=== PATIENT | female | born 1980 | race Caucasian/White ===

== ENCOUNTER 2016-07-08 10:03 | Inpatient (IN) | payer BC, OTHER ==
--- NOTE | ~2016-07-08 | HP ---
History And Physical [address] [address] [place]. [address] NAME: JOSE DOOLEY : 76 STATUS : ADM [place] PAT#: [id number] AGE: 35 ADM/REG DATE : 07/08/16 MR#: [id number] REPORT SERV DATE: 07/08/16 DICTATED BY: TOÑA BARRIOS DATE: 07/08/16 REPORT STATUS : Draft TRANSCRIBED BY: MODBhumika DATE: 07/08/16 DATE OF ADMISSION: 07/08/2016 CHIEF COMPLAINT: Shortness of breath and chest pain for two weeks. HISTORY OF PRESENT ILLNESS: This is a pleasant 35-year-old morbidly obese white female with no known history of CAD, but treated for palpitations with Toprol-XL. The patient reports dyspnea on exertion and exertional chest pain over the last several weeks that has worsened over the past two weeks and seems to come on with less exertion such as housework or walking on a flat surface. She describes it as substernal chest pain that radiates underneath her left breast. She reports associated shortness of breath, nausea, and dizziness. Denies any diaphoresis or belching. At its most intense, she rates the chest pain a 10/10. At the time of interview in the [facility], she is pain-free. The episodes resolved with rest. The patient denies any personal history of myocardial infarction, stroke, DVT, or pulmonary embolus. The patient denies any recent fever or chills. Describes rare palpitations. Consumes rare diet Coke. No syncopal episodes. Denies PND or orthopnea. PAST MEDICAL HISTORY: 1. Palpitations treated with long-acting beta-frederic. 2. BMI greater than 40. 3. Goiter, followed by Dr. Gutierrez. 4. Former tobacco abuse. SURGICAL HISTORY: A thyroid biopsy, benign; cervical biopsy, benign, and . SOCIAL HISTORY: She is with two children. She is employed in childcare. Does not have an exercise routine. Quit smoking in 2013. Prior to that, was a half pack to one pack per day for 7+ years. Denies alcohol or illicits. FAMILY HISTORY: No embolic events reported in first-degree relatives. Maternal grandfather with a heart attack in his 50s, remains alive at 86. Paternal grandfather with a stroke in his 80s and a heart attack at 92, remains living. Paternal grandmother with valve replacement and heart attack in her 80s, remains alive at 84. REVIEW OF SYSTEMS: A fourteen-point review of systems performed, significant for HPI. No other contributory diagnoses identified. ALLERGIES: PENICILLIN, VOMITING. HOME MEDICINES: Tylenol p.r.n., metoprolol succinate 25 mg daily. PHYSICAL EXAMINATION: VITAL SIGNS: Bilateral blood pressures on arrival, right 127/74, left 129/71, pulse 87, History And Physical [address] [address] NAME: JOSE DOOLEY : 76 STATUS : ADM [place] PAT#: [id number] AGE: 35 ADM/REG DATE : 07/08/16 MR#: [id number] REPORT SERV DATE: 07/08/16 DICTATED BY: TOÑA BARRIOS DATE: 07/08/16 REPORT STATUS : Draft TRANSCRIBED BY: KIRT DATE: 07/08/16 respirations 18, temperature 98.3, O2 saturation 99% on room air. Height 5 feet 8 inches, weight 271 pounds. BMI 41. GENERAL: Cooperative, in no apparent distress. HEENT: Pupils 2 mm, sclera nonicteric. Nares patent. Moist mucous membranes. No xanthelasma. NECK: Trachea midline, no thyromegaly. No JVD. No bruits. LYMPH: No cervical lymphadenopathy. No supraclavicular lymphadenopathy. RESPIRATORY: Unlabored respirations. Breath sounds clear bilaterally to posterior auscultation. No wheezes or rhonchi. CARDIOVASCULAR: Regular rate. No murmur, rub or gallop appreciated. EXTREMITIES: Without edema. Pulses 2+ bilaterally. ABDOMEN: Soft, nontender, nondistended, normal bowel sounds auscultated throughout. No organomegaly. SKIN: Warm, dry extremities. No pallor, or cyanosis. PSYCHIATRIC: Appropriate affect. Alert, oriented x3. LABORATORY DATA: Troponin less than 0.02, second at 1500 hours. Potassium 3.6, BUN 6, creatinine 0.79, glucose 97, and magnesium 2.1. WBC 9.3, hemoglobin 12.0, hematocrit 38.5, and platelet count 305,000. EKG, sinus rhythm. Stress echo, 2011: Jose stage 3, 8: 19 minutes 10 METS, no ischemia. Holter, 2015: Frequent PVCs. Some couplets and bigeminal PVCs. No symptoms reported with PVCs. ASSESSMENT AND PLAN: 1. Substernal chest pain with exertion. The patient will be observed in the [facility] overnight to rule out myocardial infarction with serial enzymes, serial electrocardiograms, and held n.p.o. We will proceed with cardiac cath tomorrow. If second troponin negative, the patient will be discharged home if low risk, no ischemia. To follow up with her primary care physician in one to two weeks with all studies being sent to that office. 2. Dyspnea on exertion. Check echo. 3. Palpitations. Hold beta-frederic. Monitor rhythm. Resume beta-frederic after cardiac stress. 4. Body mass index greater than 40. Diet and exercise discussed for conditioning and weight loss. JOSE G/KIRT Toña Barrios, MSN, COMMUNICATION SKILLS INSTRUCTOR-BC / [id number] History And Physical [address] [address] NAME: JOSE DOOLEY : 76 STATUS : ADM [place] PAT#: [id number] AGE: 35 ADM/REG DATE : 07/08/16 MR#: [id number] REPORT SERV DATE: 07/08/16 DICTATED BY: TOÑA BARRIOS DATE: 07/08/16 REPORT STATUS : Draft TRANSCRIBED BY: TIMOTHYL DATE: 07/08/16 CC: Toña Barrios, MSN, COMMUNICATION SKILLS INSTRUCTOR-BC Yeison Kaminski M.D.
[2016-07-08 09:30] LABS: BASOPHILS 0.4 %; BASOPHILS ABSOLUTE 0.04 10/3/uL (0.0-0.16); EOSINOPHILS 0.9 %; EOSINOPHILS ABSOLUTE 0.08 10/3/uL (0.0-0.53); HEMATOCRIT 38.5 % (36.0-48.0); IMMATURE GRANULOCYTES 0.1 %; IMMATURE GRANULOCYTES ABSOLUTE 0.01 10/3/uL (0.0-0.11); LYMPHOCYTES 20.8 %; LYMPHOCYTES ABSOLUTE 1.93 10/3/uL (0.67-4.30); MEAN CORPUS HGB CONC 31.2 g/dL (32.0-36.0); MEAN CORPUSCULAR HEMOGLOB 23.7 pg (26.0-34.0); MEAN CORPUSCULAR VOLUME 75.9 fL (80-100); MONOCYTES 5.1 %; MONOCYTES ABSOLUTE 0.47 10/3/uL (0.21-1.20); NEUTROPHILS 72.7 %; NEUTROPHILS ABSOLUTE 6.73 10/3/uL (2.02-8.40); PLATELET COUNT 305 10/3/uL (150-400); RBC DISTRIBUTION WIDTH 14.7 % (12.0-16.0); RED CELL COUNT 5.07 10/6/uL (4.0-5.6); WHITE BLOOD CELLS 9.3 10/3/uL (4.5-10.5)
[2016-07-08 09:33] LABS: ER CBC TAT 0 Hrs 00 Mins; MANUAL DIFF NO %
[2016-07-08 09:39] LABS: INTERNATIONAL NORMAL RATI 1.1 UNITS (-); PARTIAL THROMBO TIME 35.9 SEC (22.5-37.2); PROTIME (NOT ORD) 13.9 SEC (12.0-14.5)
[2016-07-08 09:49] LABS: BUN (BLOOD UREA NITROGEN) 6 MG/DL (6-23); CALCIUM, SERUM 9.2 MG/DL (8.5-10.4); CHEST PAIN PROFILE TAT 0 Hrs 00 Mins; CHLORIDE, SERUM 106 MMOL/L (96-112); CO2 (CARBON DIOXIDE) 26 MMOL/L (24-34); CREATININE 0.79 MG/DL (0.55-1.02); GFR AFRICAN AMERICAN 111 ML/MIN (>=60); GFR NON AFRICAN AMERICAN 96 ML/MIN (>=60); GLUCOSE, SERUM 97 MG/DL (60-99); POTASSIUM, SERUM 3.6 MMOL/L (3.5-5.3); SODIUM, SERUM 142 MMOL/L (135-148); TROPONIN I <0.02 NG/ML (<0.05)
[~2016-07-08 10:03] MED LIST: ONE DAILY ESSE1 EACH PO; ZOLOFT25 MG PO
[2016-07-08] MEDS ORDERED: TOPXL25 PO (11:02)
[2016-07-08] MEDS ORDERED: ACET500CAP PO (11:02)
[2016-07-10 05:01] LABS: HEMATOCRIT 39.7 % (36.0-48.0); HEMOGLOBIN 12.4 g/dL (12.0-16.0); MEAN CORPUS HGB CONC 31.2 g/dL (32.0-36.0); MEAN CORPUSCULAR HEMOGLOB 23.8 pg (26.0-34.0); MEAN CORPUSCULAR VOLUME 76.3 fL (80-100); MEAN PLATELET VOLUME 10.4 fL (9.2-13.0); PLATELET COUNT 300 10/3/uL (150-400); RBC DISTRIBUTION WIDTH 15.2 % (12.0-16.0); WHITE BLOOD CELLS 9.2 10/3/uL (4.5-10.5)
[2016-07-10 05:02] LABS: MANUAL DIFF YES %
[2016-07-10 05:06] LABS: INTERNATIONAL NORMAL RATI 1.1 UNITS (-)
[2016-07-10 05:12] LABS: BUN (BLOOD UREA NITROGEN) 8 MG/DL (6-23); CALCIUM, SERUM 8.9 MG/DL (8.5-10.4); CHLORIDE, SERUM 107 MMOL/L (96-112); CHOL/HDL RATIO(NOT ORDER) 3.1 (0-5); CHOLESTEROL 156 MG/DL (< 200); CO2 (CARBON DIOXIDE) 27 MMOL/L (24-34); CREATININE 0.76 MG/DL (0.55-1.02); GFR AFRICAN AMERICAN 116 ML/MIN (>=60); GFR NON AFRICAN AMERICAN 100 ML/MIN (>=60); GLUCOSE, SERUM 87 MG/DL (60-99); HDL CHOLESTEROL 51 MG/DL (> 49); LDL CHOLESTEROL 87 MG/DL (< 130); NON-HDL CHOLESTEROL 105 MG/DL (< 160); POTASSIUM, SERUM 3.8 MMOL/L (3.5-5.3); SODIUM, SERUM 142 MMOL/L (135-148); TRIGLYCERIDE 94 MG/DL (< 150)
[2016-07-10 06:19] LABS: BAND NEUTROPHILS 2 %; BASOPHILS 2 %; BASOPHILS ABSOLUTE (CALC) 0.18 10/3/uL (0.0-0.16); EOSINOPHILS 1 %; EOSINOPHILS ABSOLUTE (CALC) 0.09 10/3/uL (0.0-0.53); LYMPHOCYTES 23 %; LYMPHOCYTES ABSOLUTE (CALC) 2.12 10/3/uL (0.67-4.30); MONOCYTES 2 %; MONOCYTES ABSOLUTE (CALC) 0.18 10/3/uL (0.21-1.20); NEUTROPHILS ABSOLUTE (CALC) 6.62 10/3/uL (2.02-8.40); SEGMENTED NEUTROPHIL (0) 70 %; TOTAL NUCLEATED CELLS 100
[2016-07-10 06:20] LABS: MICROCYTES 1+ (5-10/OIF) (0-5/OIF); PLATELET ESTIMATE DEC (ADEQUATE)
[2016-07-10] MEDS ORDERED: ASAB PO (15:40)
[2016-07-10] MEDS ORDERED: LIPITOR20 PO (15:40)
== END 2016-07-10 16:52 | disposition home or self-care (01) | DRG 287 ==
LOC: ER 10:03 → CDU1 12:07 → CDU2 12:14
PROVIDERS: Clinical Nurse Specialist; Emergency Medicine
PROC: 4A023N7 Measurement of Cardiac Sampling and Pressure, Left Heart, Percutaneous Approach (ICD-10-PCS; principal; 2016-07-10)
PROC: B2111ZZ Fluoroscopy of Multiple Coronary Arteries using Low Osmolar Contrast (ICD-10-PCS; 2016-07-10)
PROC: B2151ZZ Fluoroscopy of Left Heart using Low Osmolar Contrast (ICD-10-PCS; 2016-07-10)
DX: R07.89 Other chest pain (principal); Z68.41 Body mass index [BMI] 40.0-44.9, adult; I10 Essential (primary) hypertension; E66.01 Morbid (severe) obesity due to excess calories; R00.2 Palpitations; E04.9 Nontoxic goiter, unspecified; Z87.891 Personal history of nicotine dependence; Z88.0 Allergy status to penicillin
CPT/HCPCS: 71010; 78492; 80048; 80061; 83735; 84484; 84703; 85025; 85379; 85610; 85730; 93005; 93017; 93306; 93458; 99152; 99153; 99285; A9270-GY; A9555; C1769; C1887; C1894; J0280; J2250; J2785; J3010; Q9967